=== PATIENT | male | born 1965 | race Caucasian/White ===

== ENCOUNTER → 2022-05-22 | Outpatient (CLI) | payer OTHER ==
[~2022-05-22] MED LIST: GLIP-162 PO; HYDR25TA2 PO; TERB250T90 PO; UNK MEDS
== END | disposition home or self-care (01) ==
LOC: RADPV 13:42
PROVIDERS: ATTEND Internal Medicine Cardiovascular Disease
DX: I08.1 Rheumatic disorders of both mitral and tricuspid valves (principal); I65.23 Occlusion and stenosis of bilateral carotid arteries
CPT/HCPCS: 93306; 93880